=== PATIENT | female | born 1970 | race Caucasian/White ===

== ENCOUNTER → 2021-04-26 | Outpatient (CLI) | payer OTHER | LOC: EXRD 13:22 | DX: R29.898 Other symptoms and signs involving the musculoskeletal system (principal) | CPT/HCPCS: 93880 ==

== ENCOUNTER → 2021-11-03 | Outpatient (CLI) | payer OTHER | LOC: EXRD 09-14 14:30 → US 10-06 13:30 | DX: E01.0 Iodine-deficiency related diffuse (endemic) goiter (principal) | CPT/HCPCS: 76536 ==